=== PATIENT | male | born 1990 | race Caucasian/White ===

== ENCOUNTER 2018-11-27 15:06 | Emergency (ER) | payer MEDICAID ==
[~2018-11-27] VITALS: Ht 170.2 cm; Wt 109.0 kg
[~2018-11-27 15:06] MED LIST: OXYC-134 PO
[2018-11-27 15:18] VITALS: BP 185/114
[2018-11-27] MEDS ORDERED: CLOB15CR4 TOP (15:33)
== END 2018-11-27 15:41 | disposition home or self-care (01) ==
LOC: ER 15:07
DX: F11.29 Opioid dependence with unspecified opioid-induced disorder (principal); L40.9 Psoriasis, unspecified; F12.90 Cannabis use, unspecified, uncomplicated; F15.90 Other stimulant use, unspecified, uncomplicated; F17.200 Nicotine dependence, unspecified, uncomplicated; Z79.899 Other long term (current) drug therapy
CPT/HCPCS: 99283

== ENCOUNTER 2019-03-09 11:17 | Emergency (ER) | payer MEDICAID ==
[~2019-03-09] VITALS: Ht 170.2 cm; Wt 126.0 kg
[~2019-03-09 11:17] MED LIST changes: +CLOB15CR4 TOP
[2019-03-09 11:19] VITALS: BP 144/89
== END 2019-03-09 12:34 | disposition home or self-care (01) ==
LOC: ER 11:19
DX: F15.10 Other stimulant abuse, uncomplicated (principal); F12.90 Cannabis use, unspecified, uncomplicated; F11.90 Opioid use, unspecified, uncomplicated; F10.99 Alcohol use, unspecified with unspecified alcohol-induced disorder; Z79.899 Other long term (current) drug therapy; Y90.9 Presence of alcohol in blood, level not specified
CPT/HCPCS: 99281

== ENCOUNTER 2019-05-02 18:27 | Emergency (ER) | payer MEDICAID ==
[~2019-05-02] VITALS: Ht 170.2 cm; Wt 118.0 kg
[2019-05-02] MEDS ORDERED: IBUP-1984 PO (19:32)
[2019-05-02 20:05] VITALS: BP 136/97
== END 2019-05-02 20:06 | disposition home or self-care (01) ==
LOC: ER 18:27
DX: S02.5XXA Fracture of tooth (traumatic), initial encounter for closed fracture (principal); K02.9 Dental caries, unspecified; F12.90 Cannabis use, unspecified, uncomplicated; F15.90 Other stimulant use, unspecified, uncomplicated; F11.90 Opioid use, unspecified, uncomplicated; F10.99 Alcohol use, unspecified with unspecified alcohol-induced disorder; Z79.899 Other long term (current) drug therapy; X58.XXXA Exposure to other specified factors, initial encounter; Y93.89 Activity, other specified; Y92.89 Other specified places as the place of occurrence of the external cause; Y99.8 Other external cause status; Y90.9 Presence of alcohol in blood, level not specified
CPT/HCPCS: 99282

== ENCOUNTER 2020-01-07 23:52 | Emergency (ER) | payer MEDICAID, OTHER ==
[~2020-01-07] VITALS: Ht 170.2 cm; Wt 132.9 kg
[2020-01-08 00:38] VITALS: BP 149/91
== END 2020-01-08 00:40 | disposition home or self-care (01) ==
LOC: ER 23:53
DX: Z04.89 Encounter for examination and observation for other specified reasons (principal); F12.90 Cannabis use, unspecified, uncomplicated; F15.90 Other stimulant use, unspecified, uncomplicated; F11.90 Opioid use, unspecified, uncomplicated; F19.90 Other psychoactive substance use, unspecified, uncomplicated; Z72.89 Other problems related to lifestyle; Z79.899 Other long term (current) drug therapy
CPT/HCPCS: 99281

== ENCOUNTER 2024-08-19 11:21 | Emergency (ER) | payer MEDICAID ==
[~2024-08-19] VITALS: Ht 170.2 cm; Wt 120.8 kg
[2024-08-19 12:03] LABS: BILIRUBIN,URINE NEGATIVE (Neg); CLARITY,URINE CLEAR (Clear); COLOR,URINE YELLOW (Yellow); GLUCOSE, URINE NEGATIVE (Neg); KETONES,URINE NEGATIVE (Neg); LEUKOCYTE ESTERASE ,URINE NEGATIVE (Neg); NITRITES, URINE NEGATIVE (Neg); OCCULT BLOOD,URINE NEGATIVE (Neg); PROTEIN,URINE NEGATIVE (Neg); UROBILINOGEN,URINE 0.2 E.U/dL (0.2-1.0)
[2024-08-19 12:07] LABS: UA COLLECTION TYPE NON-SPECIFIED
[2024-08-19] MEDS: azithromycin 250mg tablet PO ONE (12:10)
[2024-08-19] MEDS: CefTRIAXone 500MG IM Kit w/LIDOcaine IM ONE (12:11)
[2024-08-19 12:25] VITALS: BP 160/83; PULSE 79; RESP 16; TEMP 98; O2SAT 98
[2024-08-21 13:12] LABS: CHLAMYDIA TRACHOMATIS, NAA Negative (Negative)
== END 2024-08-19 12:26 | disposition home or self-care (01) ==
LOC: ER 11:22
DX: Z11.3 Encounter for screening for infections with a predominantly sexual mode of transmission (principal); F17.200 Nicotine dependence, unspecified, uncomplicated; F12.90 Cannabis use, unspecified, uncomplicated; F15.90 Other stimulant use, unspecified, uncomplicated; F11.90 Opioid use, unspecified, uncomplicated; F19.90 Other psychoactive substance use, unspecified, uncomplicated; Z72.89 Other problems related to lifestyle; Z79.899 Other long term (current) drug therapy
CPT/HCPCS: 36415; 81003; 87491; 87591; 96372; 99283; J0696

== ENCOUNTER 2024-10-25 10:04 | Emergency (ER) | payer MEDICAID ==
[~2024-10-25] VITALS: Ht 170.2 cm; Wt 118.7 kg
[2024-10-25] MEDS ORDERED: DOXY150T9 PO (11:19)
[2024-10-25 11:28] VITALS: BP 148/88; PULSE 88; RESP 20; TEMP 97.7; O2SAT 98
[2024-10-25] MEDS: CefTRIAXone 1000mg IM Kit (w/lidocaine diluent) IM ONE (11:32)
== END 2024-10-25 11:36 | disposition home or self-care (01) ==
LOC: ER 10:04
DX: A64 Unspecified sexually transmitted disease (principal); F12.90 Cannabis use, unspecified, uncomplicated; F15.90 Other stimulant use, unspecified, uncomplicated; F11.90 Opioid use, unspecified, uncomplicated
CPT/HCPCS: 96372; 99283; J0696

== ENCOUNTER 2025-02-11 13:39 | Emergency (ER) | payer MEDICAID ==
[~2025-02-11] VITALS: Ht 170.2 cm; Wt 124.2 kg
[2025-02-11 14:25] LABS: MEAN PLATELET VOLUME 7.7 FL (7.4-10.4); RED CELL DISTRIBUTION WIDTH 13.1 % (11.5-14.5)
[2025-02-11 14:43] LABS: CREATININE 0.90 MG/DL (0.60-1.10); TOTAL CARBON DIOXIDE 30.3 MMOL/L (24-32); eCRCL 107 ML/MIN; eGFR > 90 ML/MIN
[2025-02-11 15:02] LABS: LEUKOCYTE ESTERASE ,URINE NEGATIVE (Neg); NITRITES, URINE NEGATIVE (Neg); OCCULT BLOOD,URINE NEGATIVE (Neg)
[2025-02-11 15:10] VITALS: TEMP 98.8
[2025-02-11 15:29] LABS: UA COLLECTION TYPE CLN CATCH MIDSTREAM
[2025-02-11] MEDS ORDERED: TIZA-189 PO (15:30)
[2025-02-11] MEDS ORDERED: NAPR-1168 PO (15:30)
--- NOTE | 2025-02-11 15:32 | Physician Documentation ---
History of Present Illness ~ Chief Complaint: Flank Pain Stated Complaint: BURN FEEL ON LOWER BACK Time Seen by MD: 15:20 Primary Medical Doctor: n/a HPI This is a 35-year-old male who presented to the emergency department today due to four days of thoracic back pain on the left. He reports that the pain is worse with movement. He has had no chills or fever nausea or vomiting. He denies any chest pain or shortness of breath. He denies any known injury. He suspects that he slept wrong. His main concern was that he may have some type of work and dysfunction. He was wanting lab work. Medication Reconciliation Allergies: Coded Allergies: No Known Allergies (Unverified , 02/11/25) Scheduled Clobetasol Propionate (Clobetasol Propionate), 1 APPLIC TOP Q12H Scheduled PRN Oxycodone HCl/Acetaminophen (Endocet 5-325 Tablet), 1-2 TAB PO Q4H PRN for pain Past Medical History Past Medical History: No Pertinent History Past Surgical History: no surgical history Alcohol Use: Occasionally Drug Use: marijuana, methamphetamine, heroin, other Lives with: Family Lives In: Home Occupation: employed Review of Systems ROS As stated above in the HPI, otherwise all systems are reviewed and negative. Physical Exam Physical Exam Vital Signs: Temperature: 98.8, Source: Oral, Heart Rate: 79, Respiratory Rate: 16, BP: 114/55, Pulse Oximetry: 95, Weight: 124.150 Oxygen Flow Rate: 0 Physical Exam General: Alert, no apparent distress. Neck: Full range of motion. Respiratory: Lungs clear, no respiratory distress. Chest: No accessory muscle use. Cardiovascular: Regular rate and rhythm, no murmurs. Back: Left thoracic back pain with palpable spasm. No rash. Pain worse with movement. Gastrointestinal: Soft, nontender, nondistended. Bowels sounds present. Extremities: Normal range of motion, no deformity. Neurologic: Oriented x4. Psychiatric: Normal mood and affect. Skin: Normal color, warm and dry. No edema, no ecchymosis. Progress Results/Orders Results/Orders Orders - RICHY FLETCHER NP Ketorolac Trometh 30mg/Ml Vial (Toradol (02/11/25 15:30) Vital Signs 02/11/25 02/11/25 13:55 15:10 Temp 98.8 98.8 Pulse 99 79 Resp 18 16 B/P (MAP) 168/92 114/55 (74) Pulse Ox 99 95 O2 Flow Rate 0 0 Laboratory Tests Test 02/11/25 14:14 02/11/25 14:51 White Blood Count 11.5 H Red Blood Count 5.20 Hemoglobin 15.7 Hematocrit 45.6 Mean Corpuscular Volume 87.8 Mean Corpuscular Hemoglobin 30.1 Mean Corpuscular Hemoglobin Concent 34.3 Red Cell Distribution Width 13.1 Platelet Count 203 Mean Platelet Volume 7.7 Neutrophils (%) (Auto) 79.4 H Lymphocytes (%) (Auto) 13.6 L Monocytes (%) (Auto) 5.3 Eosinophils (%) (Auto) 1.2 Basophils (%) (Auto) 0.5 Neutrophils # (Auto) 9.1 H Lymphocytes # (Auto) 1.6 Monocytes # (Auto) 0.6 Eosinophils # (Auto) 0.1 Basophils # (Auto) 0.1 CBC Comment Sodium Level 139 Potassium Level 4.7 Chloride Level 104 Carbon Dioxide Level 30.3 Anion Gap 5 L Blood Urea Nitrogen 16 Creatinine 0.90 Estimated GFR/1.73 m2 > 90 BUN/Creatinine Ratio 17.8 Glucose Level 89 Calcium Level 8.6 Total Bilirubin 0.4 Aspartate Amino Transf (AST/SGOT) 20 Alanine Aminotransferase (ALT/SGPT) 36 Alkaline Phosphatase 69 Total Protein 7.2 Albumin 3.8 Globulin 3.4 Albumin/Globulin Ratio 1.1 Lipase 36 Chemistry Comments Urine Comment Medical Decision Making Differential Diagnosis Well-appearing 35-year-old male who admits to a history of drug dependence. He was amenable to Toradol in the ER prior to discharge. He was reassured that his labs were normal. He is instructed to follow up with primary care provider retu rn if worse. No danger signs were identified during this ER visit and he was appropriate for d/c home from ER. Departure Time of Disposition: 15:27 Disposition: 01 HOME / SELF CARE / HOMELESS Impression: Primary Impression: Strain of thoracic region Condition: Stable Discharge Instructions: Thoracic Strain Additional Instructions: Your labs were reassuring today. Normal kidney and liver function. You have likely strained your back or slept wrong. Use the prescribed pain medication and muscle relaxants. Ice or heat, whichever feels best at this point. Followup with your primary care provider next week. Return if worse. Referrals: NO PRIMARY CARE PROVIDER (PCP) Prescriptions Tizanidine Hcl (Zanaflex) 2 Mg Tablet 1 TAB PO Q8H for spasm for 10 Days, #30 TAB 0 Refills Prov: RICHY FLETCHER NP 02/11/25 Naproxen (Naproxen) 500 Mg Tablet 1 TAB PO Q12H for pain for 10 Days, #20 TAB 0 Refills Prov: RICHY FLETCHER NP 02/11/25 Education Educated: Patient Educated regarding: diagnosis, treatment, prognosis, need for follow up Signature Scribe Signature: x Attestation: The note accurately reflects work and decisions made by me.Richy Prince NP 02/11/25 15:31 RICHY FLETCHER NP Feb 11, 2025 15:32
[2025-02-11] MEDS: ketorolac trometh 30MG/ML vial 30 MG/ML VIAL IM ONE (15:40)
[2025-02-11 15:48] VITALS: BP 140/80; PULSE 88; RESP 14; O2SAT 96
== END 2025-02-11 15:53 | disposition home or self-care (01) ==
LOC: ER 13:40
DX: S29.012A Strain of muscle and tendon of back wall of thorax, initial encounter (principal); X58.XXXA Exposure to other specified factors, initial encounter; Y93.89 Activity, other specified; Y92.89 Other specified places as the place of occurrence of the external cause; Y99.8 Other external cause status
CPT/HCPCS: 36415; 80053; 81003; 83690; 85025; 96372; 99283; J1885